=== PATIENT | female | born 1965 | race Caucasian/White ===

== ENCOUNTER 2018-05-31 12:41 | Emergency (ER) | payer SELFPAY ==
[~2018-05-31] VITALS: Ht 165.1 cm; Wt 81.6 kg
[~2018-05-31 12:41] MED LIST: CIPR-225 PO; ESTR10TA9 VG; FAMO-119 PO; INSU100V31 IJ; INSU100V6 SQ; LISI-552 PO; OMEP20TA33 PO; PRAV40TA2 PO; VALA10004 PO; VENL150C PO
--- OUTSIDE RECORDS SUMMARY | 2018-05-31 12:47 | XMS REPORT ---
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 Active 599368605 Problem Gastroesophageal reflux disease without esophagitis K21.9 Active 166450517 Problem History of hyperlipidemia Z86.39 Active 036441484 Problem Essential hypertension I10 Active 90201005 Problem Restless leg syndrome, controlled G25.81 Active 03636031 ALLERGIES No Information ENCOUNTERS Encounter Location Date Diagnosis [place] [address] [place] [id number] [place] [address] 21863- 0804 Apr, Depression, unspecified depression type F32.9 [facility] [address] [place] [address] 52769- 9526 Apr, History of genital warts Z86.19 [place] [address] [place] [address] 96637- 9070 Apr, Restless leg syndrome, controlled G25.81 [facility] [id number] [place] [address] 43451- 0424 Mar, Type 2 diabetes mellitus without complications E11.9 [facility] [id number] [place] [address] 17422- 7136 Mar, [place] [id number] [place] [address] 12486- 8211 Mar, Type 2 diabetes mellitus without complications E11.9 [facility] [address] [place] [address] Mar, [facility] [address] [facility] [id number] [place] [address] Mar, Type 2 diabetes mellitus without complications E11.9 ; long-term current use of insulin Z79.4 ; Restless leg syndrome, controlled G25.81 ; Depression, unspecified depression type F32.9 ; Essential hypertension I10 ; Gastroesophageal reflux disease without esophagitis K21.9 ; History of hyperlipidemia Z86.39 and History of genital warts Z86.19 IMMUNIZATIONS No Known Immunizations SOCIAL HISTORY Never Assessed REASON FOR VISIT DM ED Scheduled PLAN OF CARE VITAL SIGNS MEDICATIONS Unknown Medications RESULTS No Results PROCEDURES No Known procedures INSTRUCTIONS MEDICATIONS ADMINISTERED No Known Medications MEDICAL (GENERAL) HISTORY Type Description Date Medical History DMII Medical History RLS Medical History HTN Medical History HYPERLIPIDEMIA Medical History GENITAL HERPES Medical History DEPRESSION Medical History SLEEP APNEA, HAS BIPAP MACHINE BUT IT IS NOT WORKING SO SHE DOES NOT USE IT 03/26/18 Surgical History total hysterecomy 2007 Surgical History gall bladder removed Surgical History T and A as a child Hospitalization History surgeries only
--- OUTSIDE RECORDS SUMMARY | 2018-05-31 12:47 | XMS REPORT ---
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 Active 888433751 Problem Gastroesophageal reflux disease without esophagitis K21.9 Active 621630453 Problem History of hyperlipidemia Z86.39 Active 659549987 Problem Essential hypertension I10 Active 35854205 Problem Restless leg syndrome, controlled G25.81 Active 90835113 ALLERGIES Substance Reaction Event Type Date Status Percocet itch Drug Allergy Mar, Active ENCOUNTERS Encounter Location Date Diagnosis [place] [address] [place] [id number] [place] [address] 95670- 9358 Apr, Depression, unspecified depression type F32.9 [facility] [id number] [place] [address] 96318- 7470 Apr, History of genital warts Z86.19 [facility] [id number] [place] [address] 65506- 7173 Apr, Restless leg syndrome, controlled G25.81 [facility] [id number] [place] [address] 44948- 2791 Mar, Type 2 diabetes mellitus without complications E11.9 [facility] [id number] [place] [address] 47221- 3120 Mar, [facility] [id number] [place] [address] 69463- 6803 Mar, Type 2 diabetes mellitus without complications E11.9 [facility] [address] [facility] [id number] [place] [address] 12 Mar, 2018 [facility] [address] [facility] [id number] [place] [address] 11 Mar, 2018 Type 2 diabetes mellitus without complications E11.9 ; computer terminal operator current use 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 Z79.4 ; Restless leg syndrome, controlled G25.81 ; Depression, unspecified depression type F32.9 ; Essential hypertension I10 ; Gastroesophageal reflux disease without esophagitis K21.9 ; History of hyperlipidemia Z86.39 and History of genital warts Z86.19 IMMUNIZATIONS No Known Immunizations SOCIAL HISTORY Never Assessed REASON FOR VISIT Establish Care., medication refills, spot on back of neck-awoods PLAN OF CARE Activity Details Follow Up 3 months or as indicated by lab Reason:DM VITAL SIGNS Height 66 in 2018-03-26 Weight 177.5 lbs 2018-03-26 Temperature 98.8 degrees Fahrenheit 2018-03-26 Heart Rate 100 bpm 2018-03-26 Respiratory Rate 18 2018-03-26 BMI 28.65 kg/m2 2018-03-26 Blood pressure systolic 150 mmHg 2018-03-26 Blood pressure diastolic 90 mmHg 2018-03-26 MEDICATIONS Medication Instructions Dosage Frequency Start Date End Date Duration Status Pramipexole Dihydrochloride 0.5 MG Orally Once a day 1 tablet before bedtime 24h 30 days Active Omeprazole 20 mg Orally Once a day 1 capsule 24h 30 days Active Lisinopril-Hydrochlorothiazide 20-25 MG Orally Once a day 1 tablet 24h 30 days Active Lantus 100 UNIT/ML Subcutaneous 2 times a day 20 units 12h Active Venlafaxine HCl ER 150 MG Orally Once a day 1 capsule with food 24h Active Estradiol 2 MG Orally Once a day 1 tablet 24h Active Valacyclovir HCl 500 mg Orally Once a day 1 tablet 24h Apr, 30 days Active Pravastatin Sodium 20 mg Orally Once a day 1 tablet 24h 30 days Active RESULTS No Results PROCEDURES No Known procedures INSTRUCTIONS MEDICATIONS ADMINISTERED No Known Medications MEDICAL (GENERAL) HISTORY Type Description Date Medical History DMII Medical History RLS Medical History HTN Medical History HYPERLIPIDEMIA Medical History GENITAL HERPES Medical History DEPRESSION Medical History SLEEP APNEA, HAS BIPAP MACHINE BUT IT IS NOT WORKING SO SHE DOES NOT USE IT 03/26/18 Surgical History total hysterecomy 2008 Surgical History gall bladder removed Surgical History T and A as a child Hospitalization History surgeries only
--- OUTSIDE RECORDS SUMMARY | 2018-05-31 12:47 | XMS REPORT ---
Author Author NBA MINER 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 Active 856889492 Problem Gastroesophageal reflux disease without esophagitis K21.9 Active 098580869 Problem History of hyperlipidemia Z86.39 Active 842931601 Problem Essential hypertension I10 Active 11148984 Problem Restless leg syndrome, controlled G25.81 Active 05629403 ALLERGIES No Information ENCOUNTERS Encounter Location Date Diagnosis [place] [address] [id number] [place] [address] 00051- 1433 Apr, Depression, unspecified depression type F32.9 [facility] [address] [place] [address] 11576- 7433 Apr, History of genital warts Z86.19 [place] [address] [place] [address] 15332- 5867 Apr, Restless leg syndrome, controlled G25.81 [facility] [id number] [place] [address] 83021- 5275 Mar, Type 2 diabetes mellitus without complications E11.9 [facility] [id number] [place] [address] 98806- 4815 Mar, [place] [id number] [place] [address] 62618- 4621 Mar, Type 2 diabetes mellitus without complications E11.9 [facility] [address] [id number] [place] [address] 5689 12 Mar, 2018 [facility] [address] [facility] [id number] [place] [address] 11 Mar, 2018 Type 2 diabetes mellitus without complications E11.9 ; assisted current use of insulin Z79.4 ; Restless leg syndrome, controlled G25.81 ; Depression, unspecified depression type F32.9 ; Essential hypertension I10 ; Gastroesophageal reflux disease without esophagitis K21.9 ; History of hyperlipidemia Z86.39 and History of genital warts Z86.19 IMMUNIZATIONS No Known Immunizations SOCIAL HISTORY Never Assessed REASON FOR VISIT Lab (walk-in) PLAN OF CARE VITAL SIGNS MEDICATIONS Unknown Medications RESULTS No Results PROCEDURES Procedure Date Ordered Result Body Site LIPID PANEL March 28, 2018 ASSAY OF URINE CREATININE March 28, 2018 Hemoglobin Test Send Out 0 dollar March 28, 2018 COMPREHEN METABOLIC PANEL March 28, 2018 MICROALBUMIN, QUANTITATIVE March 28, 2018 ASSAY THYROID STIM HORMONE March 28, 2018 COMPLETE CBC W/AUTO DIFF WBC March 28, 2018 INSTRUCTIONS MEDICATIONS ADMINISTERED No Known Medications MEDICAL [...]
--- OUTSIDE RECORDS SUMMARY | 2018-05-31 12:47 | XMS REPORT ---
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 Active 912137396 Problem Gastroesophageal reflux disease without esophagitis K21.9 Active 220532947 Problem History of hyperlipidemia Z86.39 Active 140372688 Problem Essential hypertension I10 Active 10936709 Problem Restless leg syndrome, controlled G25.81 Active 88476318 ALLERGIES No Information ENCOUNTERS Encounter Location Date Diagnosis [place] [id number] [place] [address] 10651- 6133 Apr, Depression, unspecified depression type F32.9 [facility] [address] [place] [address] 44732- 0517 Apr, History of genital warts Z86.19 [place] [address] [place] [address] 97443- 1199 Apr, Restless leg syndrome, controlled G25.81 [facility] [id number] [place] [address] 45873- 5462 Mar, Type 2 diabetes mellitus without complications E11.9 [facility] [id number] [place] [address] 53272- 3951 Mar, [place] [id number] [place] [address] 27475- 2330 Mar, Type 2 diabetes mellitus without complications E11.9 [facility] [id number] [place] [address]- 3968 Mar, [facility] [address] [facility] [id number] [place] [address]- 2782 Mar, Type 2 diabetes mellitus without complications E11.9 ; [facility] current use of insulin Z79.4 ; Restless [...]
--- OUTSIDE RECORDS SUMMARY | 2018-05-31 12:47 | XMS REPORT ---
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 Active 137086531 Problem Gastroesophageal reflux disease without esophagitis K21.9 Active 272872019 Problem History of hyperlipidemia Z86.39 Active 567116885 Problem Essential hypertension I10 Active 08135123 Problem Restless leg syndrome, controlled G25.81 Active 65486201 ALLERGIES No Information ENCOUNTERS Encounter Location Date Diagnosis [place] [address] [place] [id number] [place] [address] 96917- 7027 Apr, Depression, unspecified depression type F32.9 [facility] [address] [place] [address] 76147- 3219 Apr, History of genital warts Z86.19 [place] [address] [place] [address] 33175- 8792 Apr, Restless leg syndrome, controlled G25.81 [facility] [id number] [place] [address] 26502- 1820 Mar, Type 2 diabetes mellitus without complications E11.9 [facility] [id number] [place] [address] 36249- 0145 Mar, [place] [id number] [place] [address] 17528- 1132 Mar, Type 2 diabetes mellitus without complications E11.9 [facility] [id number] [place] [address]- 5418 Mar, [facility] [address] [facility] [id number] [place] [address]- 1061 Mar, Type 2 diabetes mellitus without complications E11.9 ; half-way current use of insulin Z79.4 ; Restless leg syndrome, controlled G25.81 ; Depression, unspecified depression type F32.9 ; Essential hypertension I10 ; Gastroesophageal reflux disease without esophagitis K21.9 ; History of hyperlipidemia Z86.39 and History of genital warts Z86.19 IMMUNIZATIONS No Known Immunizations SOCIAL HISTORY Never Assessed REASON FOR VISIT Requesting samples PLAN OF CARE VITAL SIGNS MEDICATIONS Medication Instructions Dosage Frequency Start Date End Date Duration Status Lantus 100 UNIT/ML Subcutaneous 2 times a day 20 units 12h Active RESULTS No Results PROCEDURES No Known [...]
--- NOTE | 2018-05-31 12:59 | ED General ---
General Stated Complaint: DIABETIC, HEADACHE, HIGH BP Source of Information: Patient Exam Limitations: No Limitations History of Present Illness Date Seen by Provider: May 31, 2018 Time Seen by Provider: 12:54 Initial Comments To ER with reports of a headache, she feels shaky as though her blood pressure might be elevated, nauseous, weak. She suspects she might have a urinary tract infection. She also states that she's not had anything to eat in 2 days because she has no food in her house. She states that no one could help her get food either. She does have a few packs of cigarettes in her purse. 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 Timing/Duration: 1-2 Days Severity: Moderate Associated Systoms: Headaches, Nausea/Vomiting Allergies and Home Medications Allergies Coded Allergies: acetaminophen (Verified Allergy, Unknown, 03/09/18) oxycodone (Verified Allergy, Unknown, 03/09/18) Home Medications Cephalexin 500 Mg Capsule, 500 MG PO TID Prescribed by: AJAY FRANKS on 05/31/18 1517 Ciprofloxacin HCl 500 Mg Tablet, 500 MG PO BID Prescribed by: TOMMY GARCIA on 03/10/18 0146 Famotidine 20 Mg Tablet, 20 MG PO BID Prescribed by: TOMMY GARCIA on 03/10/18 0141 Insulin Glargine,Hum.rec.anlog 100 Unit/1 Ml Vial, 20 UNIT SQ BID, (Reported) Lisinopril 20 Mg Tablet, 20 MG PO DAILY, (Reported) Patient Home Medication List Home Medication List Reviewed: Yes Review of Systems Review of Systems Constitutional: see HPI EENTM: see HPI Respiratory: no symptoms reported Cardiovascular: no symptoms reported Gastrointestinal: nausea Genitourinary: no symptoms reported Musculoskeletal: no symptoms reported Skin: no symptoms reported Psychiatric/Neurological: No Symptoms Reported Hematologic/Lymphatic: No Symptoms Reported Immunological/Allergic: no symptoms reported Past Xeerhao-Krlrvd-Ysyncp Hx Patient Social History Type Used: Cigarettes Recent Foreign Travel: No Contact w/Someone Who Travel: No Past Medical History Surgeries: Yes Adenoidectomy, Gallbladder, Hysterectomy, Tonsillectomy Respiratory: Yes Asthma Cardiac: Yes Hypertension Neurological: No Genitourinary: No Gastrointestinal: Yes Gastroesophageal Reflux Musculoskeletal: No Endocrine: Yes Diabetes, Insulin dep HEENT: No Cancer: No Psychosocial: Yes Anxiety, Depression Integumentary: No Physical Exam Vital Signs Vital Signs - First Documented 05/31/18 12:48 Temp 98.5 Pulse 85 Resp 20 B/P (MAP) 154/95 (114) Pulse Ox 100 O2 Delivery Room Air Capillary Refill : Height, Weight, BMI Height: 5'5.00" Weight: 190lbs. oz. 86.018334tn; BMI Method:Stated General Appearance: No Apparent Distress, WD/WN Eyes: Bilateral Eye Normal Inspection, Bilateral Eye PERRL, Bilateral Eye EOMI HEENT: PERRL/EOMI, TMs Normal Neck: Full Range of Motion, Normal Inspection Respiratory: Lungs Clear, Normal Breath Sounds, No Accessory Muscle Use, No Respiratory Distress Cardiovascular: Regular Rate, Rhythm, Normal Peripheral Pulses Gastrointestinal: Normal Bowel Sounds, Non Tender, Soft Extremity: Normal Capillary Refill, Other (there is a paronychia around the cuticle proximal right thumb. This is already draining. Culture collected.) Neurologic/Psychiatric: Alert, Oriented x3, No Motor/Sensory Deficits Skin: Normal Color, Warm/Dry Progress/Results/Core Measures Suspected Sepsis SIRS Temperature: Pulse: Respiratory Rate: Laboratory Tests 05/31/18 12:56: White Blood Count 9.5 Blood Pressure / Mean: Laboratory Tests 05/31/18 12:56: Creatinine 0.93, Platelet Count 350, Total Bilirubin 0.5 Results/Orders Lab Results Laboratory Tests Test 05/31/18 12:52 05/31/18 12:56 05/31/18 13:57 Range/Units Glucometer 346 H 70-110 MG/DL White Blood Count 9.5 4.3-11.0 10^3/uL Red Blood Count 4.83 4.35-5.85 10^6/uL Hemoglobin 14.7 11.5-16.0 G/DL Hematocrit 43 35-52 % Mean Corpuscular Volume 88 80-99 FL Mean Corpuscular Hemoglobin 30 25-34 PG Mean Corpuscular Hemoglobin Concent 34 32-36 G/DL Red Cell Distribution Width 13.3 10.0-14.5 % Platelet Count 350 130-400 10^3/uL Mean Platelet Volume 8.4 7.4-10.4 FL Neutrophils (%) (Auto) 78 H 42-75 % Lymphocytes (%) (Auto) 15 12-44 % Monocytes (%) (Auto) 6 0-12 % Eosinophils (%) (Auto) 0 0-10 % Basophils (%) (Auto) 0 0-10 % Neutrophils # (Auto) 7.4 1.8-7.8 X 10^3 Lymphocytes # (Auto) 1.4 1.0-4.0 X 10^3 Monocytes # (Auto) 0.6 0.0-1.0 X 10^3 Eosinophils # (Auto) 0.0 0.0-0.3 10^3/uL Basophils # (Auto) 0.0 0.0-0.1 10^3/uL Sodium Level 134 L 135-145 MMOL/L Potassium Level 3.5 L 3.6-5.0 MMOL/L Chloride Level 97 L 98-107 MMOL/L Carbon Dioxide Level 21 21-32 MMOL/L Anion Gap 16 H 5-14 MMOL/L Blood Urea Nitrogen 14 7-18 MG/DL Creatinine 0.93 0.60-1.30 MG/DL Estimat Glomerular Filtration Rate > 60 BUN/Creatinine Ratio 15 Glucose Level 360 H 70-105 MG/DL Calcium Level 9.7 8.5-10.1 MG/DL Corrected Calcium 9.4 8.5-10.1 MG/DL Total Bilirubin 0.5 0.1-1.0 MG/DL Aspartate Amino Transf (AST/SGOT) 15 5-34 U/L Alanine Aminotransferase (ALT/SGPT) 14 0-55 U/L Alkaline Phosphatase 70 40-136 U/L Total Protein 7.6 6.4-8.2 GM/DL Albumin 4.4 3.2-4.5 GM/DL Urine Color YELLOW Urine Clarity SLIGHTLY CLOUDY Urine pH 6 5-9 Urine Specific [place] 1.015 L 1.016-1.022 Urine Protein NEGATIVE NEGATIVE Urine Glucose (UA) 4+ H NEGATIVE Urine Ketones 2+ H NEGATIVE Urine Nitrite POSITIVE H NEGATIVE Urine Bilirubin NEGATIVE NEGATIVE Urine Urobilinogen NORMAL NORMAL MG/DL Urine Leukocyte Esterase 3+ H NEGATIVE Urine RBC (Auto) NEGATIVE NEGATIVE Urine RBC NONE /HPF Urine WBC 25-50 H /HPF Urine Squamous Epithelial Cells 5-10 /HPF Urine Crystals NONE /LPF Urine Bacteria LARGE H /HPF Urine Casts NONE /LPF Urine Mucus NEGATIVE /LPF Urine Culture Indicated YES Urine Opiates Screen NEGATIVE NEGATIVE Urine Oxycodone Screen NEGATIVE NEGATIVE Urine Methadone Screen NEGATIVE NEGATIVE Urine Propoxyphene Screen NEGATIVE NEGATIVE Urine Barbiturates Screen NEGATIVE NEGATIVE Ur Tricyclic Antidepressants Screen NEGATIVE NEGATIVE Urine Phencyclidine Screen NEGATIVE NEGATIVE Urine Amphetamines Screen NEGATIVE NEGATIVE Urine Methamphetamines Screen NEGATIVE NEGATIVE Urine Benzodiazepines Screen NEGATIVE NEGATIVE Urine Cocaine Screen NEGATIVE NEGATIVE Urine Cannabinoids Screen POSITIVE H NEGATIVE My Orders Orders - AJAY FRANKS APRN Cbc With Automated Diff (05/31/18 12:51) Comprehensive Metabolic Panel (05/31/18 12:51) Ua Culture If Indicated (05/31/18 12:51) Iv Heplock-Insert (Order) (05/31/18 12:51) Cho 75g/M 0snack (21-2400 Adonay) (05/31/18 Lunch) Ketorolac Injection (Toradol Injection) (05/31/18 13:00) Ondansetron Injection (Zofran Injectio (05/31/18 13:00) Ns Iv 1000 Ml (Sodium Chloride 0.9%) (05/31/18 13:00) Drug Screen Stat (Urine) (05/31/18 13:00) Accucheck Stat ONCE (05/31/18 14:16) Urine Culture (05/31/18 13:57) Medications Given in ED Current Medications Medications Dose Ordered Sig/Jeannette Route Start Time Stop Time Status Last Admin Dose Admin Ketorolac Tromethamine 15 mg ONCE ONCE IVP 05/31/18 13:00 05/31/18 13:01 DC 05/31/18 13:07 15 MG Ondansetron HCl 4 mg ONCE ONCE IVP 05/31/18 13:00 05/31/18 13:01 DC 05/31/18 13:07 4 MG Vital Signs/I&O 05/31/18 12:48 Temp 98.5 Pulse 85 Resp 20 B/P (MAP) 154/95 (114) Pulse Ox 100 O2 Delivery Room Air Capillary Refill : Departure Impression Primary Impression: Diabetes mellitus Additional Impressions: Malaise Headache Urinary tract infection Disposition: 01 HOME, SELF-CARE Condition: Stable Departure-Patient Inst. Decision time for Depature: 15:15 Referrals: [facility] (PCP) Primary Care Physician NBA MINER APRN (Family) Primary Care Physician Patient Instructions: Urinary Tract Infection, Adult (DC) Add. Discharge Instructions: 1. Antibiotics as directed 2. Follow-up with your doctor next week 3. Return to ER for any concerns Scripts Cephalexin (Keflex) 500 Mg Capsule 500 MG PO TID, #15 CAP Prov: AJAY FRANKS APRN 05/31/18 AJAY FRANKS APRN May 31, 2018 12:59
[2018-05-31] MEDS ORDERED: NS IV 1000 ML 1,000 ML IV SCH (13:00)
[2018-05-31] MEDS ORDERED: ONDANSETRON 4 MG/2 ML (SDV) Z0FRAN IVP ONE (13:00)
[2018-05-31] MEDS ORDERED: KETOROLAC 30 MG/ML VIAL IVP ONE (13:00)
[2018-05-31 13:11] LABS: BASOPHILS % (AUTO) 0 % (0-10); EOSINOPHILS % (AUTO) 0 % (0-10); HEMATOCRIT 43 % (35-52); HEMOGLOBIN 14.7 G/DL (11.5-16.0); LYMPHOCYTES # (AUTO) 1.4 X 10^3 (1.0-4.0); LYMPHOCYTES % (AUTO) 15 % (12-44); MEAN CORPUSCULAR HEMOGLOBIN 30 PG (25-34); MEAN CORPUSCULAR HGB CONC 34 G/DL (32-36); MEAN CORPUSCULAR VOLUME 88 FL (80-99); MEAN PLATELET VOLUME 8.4 FL (7.4-10.4); MONOCYTES # (AUTO) 0.6 X 10^3 (0.0-1.0); MONOCYTES % (AUTO) 6 % (0-12); NEUTROPHILS # (AUTO) 7.4 X 10^3 (1.8-7.8); NEUTROPHILS % (AUTO) 78 % (42-75); PLATELET COUNT 350 10^3/uL (130-400); RED BLOOD COUNT 4.83 10^6/uL (4.35-5.85); RED CELL DISTRIBUTION WIDTH 13.3 % (10.0-14.5); WHITE BLOOD COUNT 9.5 10^3/uL (4.3-11.0)
[2018-05-31 13:32] LABS: ALANINE AMINOTRANSFERASE 14 U/L (0-55); ALBUMIN 4.4 GM/DL (3.2-4.5); ALKALINE PHOSPHATASE 70 U/L (40-136); BILIRUBIN,TOTAL 0.5 MG/DL (0.1-1.0); BUN/CREATININE RATIO 15; CALCIUM 9.7 MG/DL (8.5-10.1); CARBON DIOXIDE 21 MMOL/L (21-32); CHLORIDE 97 MMOL/L (98-107); CREATININE SERUM 0.93 MG/DL (0.60-1.30); GFR ESTIMATED > 60; GLUCOSE 360 MG/DL (70-105); POTASSIUM 3.5 MMOL/L (3.6-5.0); SODIUM 134 MMOL/L (135-145); TOTAL PROTEIN 7.6 GM/DL (6.4-8.2)
[2018-05-31 14:36] LABS: AMPHETAMINE SCREEN, URINE NEGATIVE (NEGATIVE); BARBITURATE SCREEN URINE NEGATIVE (NEGATIVE); BENZODIAZEPINES SCREEN URINE NEGATIVE (NEGATIVE); CANNABINOID SCREEN, URINE POSITIVE (NEGATIVE); COCAINE SCREEN URINE NEGATIVE (NEGATIVE); METHADONE STAT NEGATIVE (NEGATIVE); METHAMPHETAMINE SCREEN URINE S NEGATIVE (NEGATIVE); OPIATE SCREEN URINE NEGATIVE (NEGATIVE); OXYCODONE STAT NEGATIVE (NEGATIVE); PROPOXYPHENE STAT NEGATIVE (NEGATIVE); TRICYCLIC ANTIDEPRESSANTS SCRE NEGATIVE (NEGATIVE)
[2018-05-31 14:48] LABS: BILIRUBIN,URINE NEGATIVE (NEGATIVE); CLARITY,URINE SLIGHTLY CLOUDY; COLOR,URINE YELLOW; GLUCOSE, URINE (UA) 4+ (NEGATIVE); KETONES,URINE 2+ (NEGATIVE); LEUKOCYTE ESTERASE ,URINE 3+ (NEGATIVE); NITRITE,URINE POSITIVE (NEGATIVE); PH,URINE 6 (5-9); PROTEIN,URINE NEGATIVE (NEGATIVE); UROBILINOGEN,URINE NORMAL (NORMAL)
[2018-05-31 15:07] LABS: BACTERIA,URINE LARGE /HPF; WBC,URINE 25-50 /HPF
[2018-05-31] MEDS ORDERED: CEPH-507 PO (15:17)
[2018-05-31 15:26] VITALS: BP 139/88
== END 2018-05-31 15:27 | disposition home or self-care (01) ==
LOC: EDUNIT# 12:41 → ER 12:44
DX: E11.9 Type 2 diabetes mellitus without complications (principal); R53.81 Other malaise; R51 Headache; N39.0 Urinary tract infection, site not specified; J45.909 Unspecified asthma, uncomplicated; I10 Essential (primary) hypertension; K21.9 Gastro-esophageal reflux disease without esophagitis; F41.9 Anxiety disorder, unspecified; F32.9 Major depressive disorder, single episode, unspecified; Z88.8 Allergy status to other drugs, medicaments and biological substances; Z90.89 Acquired absence of other organs; Z90.710 Acquired absence of both cervix and uterus; Z88.5 Allergy status to narcotic agent; Z79.4 Long term (current) use of insulin
CPT/HCPCS: 36415; 80053; 80306; 81000; 82962; 85025; 87070; 87077; 87088; 87186; 87205; 96374; 96375